=== PATIENT | male | born 1960 | race Caucasian/White ===

== ENCOUNTER → 2023-09-21 10:39 | Outpatient (REF) | payer BC, SELFPAY | LOC: RCS 10:39 | PROVIDERS: ATTENDING PHYSICIAN Specialist | DX: Z01.818 Encounter for other preprocedural examination (principal) | CPT/HCPCS: 93005 ==

== ENCOUNTER → 2023-10-06 18:31 | Outpatient (REF) | payer BC, SELFPAY | LOC: CLAB 18:31 | PROVIDERS: ATTENDING PHYSICIAN Specialist | DX: M70.41 Prepatellar bursitis, right knee (principal) | CPT/HCPCS: 88304 ==